=== PATIENT | male | born 1960 | race Caucasian/White ===

== ENCOUNTER → 2016-10-19 | Day surgery (SDC) | payer OTHER ==
[~2016-10-19] MED LIST: AMBIEN10 MG PO; ANEXSIA 7.5/3251 TA1 PO; ASPIRIN81 M1 PO; ASPIRIN81 M2 PO; BYSTOLIC5 MG PO; CYMBALTA PO; DULOXETINE HCL60 MG PO; HYDROCODON-ACE1 EAC1 PO; HYDROCODON-ACE1 EAC5 PO; JANUVIA25 MG PO; LORAZEPAM1 MG PO; METFORMIN HCL500 M1 PO; METOPROLOL SUCC25 MG PO; METOPROLOL-HCTZ1 TA3 PO; METOPROLOL/HCTZ PO; NEURONTIN; NEURONTIN PO; NEURONTIN800 MG PO; PREDNISONE PO
--- NOTE | ~2016-10-19 | OR ---
Unit #: [id number] #: [id number] Patient: LEILANI MCPHERSON III [id number] [address] [place], [place] [address] [id number] O MR#: [id number] NAME: LEILANI MCPHERSON III ROOM: Date of Procedure: 10/19/2016 Admission Date: 10/19/2016 Surgeon: Nathaniel Parmar M.D. : 1960 Attending Physician: Nathaniel Parmar M.D. Primary Care Physician: Saud Vasquez Jr., M.D. SURGERY CENTER OPERATIVE NOTE PROCEDURE PERFORMED Lumbar epidural steroid injection under x-ray guided needle placement with provider administered conscious sedation. PREOPERATIVE DIAGNOSES 1. Acute lumbar radiculitis. 2. Spinal stenosis, lumbosacral spine. 3. Degenerative joint disease, lumbosacral spine. 4. Degenerative disk disease, lumbosacral spine. INDICATIONS FOR PROCEDURE The patient presents today with longstanding history of chronic lumbar radicular pain secondary to his underlying degenerative processes. He is generally fairly well managed medically with ongoing and continuous conservative measures; however, he does occasionally experience exacerbations, which to date have only responded to epidural steroid injections. He is currently experiencing just such an exacerbation and presents today requesting an epidural steroid injection. After discussing risks and benefits of proceeding today with a lumbar approach epidural steroid injection with followup on 01/18/2017, the patient agreed this would be the appropriate course of action. DESCRIPTION OF PROCEDURE He was then taken to the operating room, where he was prepped and draped in a sterile manner. Standard monitors were applied. He was sedated with 2 mg of IV Versed initially and required additional 2 mg of IV Versed throughout the duration of the procedure. Lumbar epidural space accessed at L2-L3 level using loss of resistance technique and x-ray guidance. Needle placement was confirmed with injection of 2 mL of Omnipaque. Approximately 80% of dye flow was in the superior direction. Following successful needle placement confirmation which requires 6 seconds of x-ray time, the patient received an injectate containing 6 mL of normal saline and 80 mg of methylprednisolone. He tolerated this procedure well and was discharged to home with followup instructions, which include return dates as described above. Dictated by... Juan Diego Romeo/wanda TD: 10/20/2016 03:27 Unit #: [id number] #: [id number] Patient: LEILANI MCPHERSON III JOB #: [id number] [facility] OPERATIVE NOTE Page 1 of 1 X Eren Parmar MD PROCEDURE OPERATIVE NOTE
== END | disposition home or self-care (01) ==
LOC: CCSC 10:12
DX: M47.27 Other spondylosis with radiculopathy, lumbosacral region (principal); M51.17 Intervertebral disc disorders with radiculopathy, lumbosacral region; M48.07 Spinal stenosis, lumbosacral region; K21.9 Gastro-esophageal reflux disease without esophagitis
CPT/HCPCS: 82947; J1040; J2250

== ENCOUNTER → 2017-01-04 | Day surgery (SDC) | payer OTHER ==
--- NOTE | ~2017-01-04 | OR ---
Unit #: [id number] #: [id number] Patient: LEILANI MCPHERSON III [id number] [address] [place], [place] [address] [id number] O MR#: [id number] NAME: LEILANI MCPHERSON III ROOM: Date of Procedure: 01/04/2017 Admission Date: 01/04/2017 Surgeon: Nathaniel Parmar M.D. : 1960 Attending Physician: Eren Parmar Primary Care Physician: Saud Vasquez Jr., M.D. SURGERY CENTER OPERATIVE NOTE PROCEDURE PERFORMED Lumbar epidural steroid injection under x-ray guided needle placement with provider administered conscious sedation. PREOPERATIVE DIAGNOSES 1. Acute lumbar radiculitis. 2. Spinal stenosis, lumbosacral spine. 3. Degenerative joint disease, lumbosacral spine. 4. Degenerative disk disease, lumbosacral spine. INDICATIONS FOR PROCEDURE The patient presents today with longstanding history of chronic lumbar radicular pain secondary to his underlying degenerative processes. He is generally fairly well managed medically with ongoing continuous conservative measures; however, he does occasionally experience exacerbations, which to date have only been successfully treated with lumbar epidural steroid injections. His amount of relief is generally 80% for 6 to 8 weeks, although he has had longer periods of success in the past. He is currently experiencing just such an exacerbation, which has been exacerbating over the course of the past 2 weeks and the pain is broken through his usual and ongoing conservative measures to the point that he is negatively impacting his activities of daily living. After discussing risks and benefits of proceeding today with a lumbar epidural steroid injection utilizes dual needle access technique, the patient agreed this would be the appropriate course of action. DESCRIPTION OF PROCEDURE He was then taken to the operating room, where he was prepped and draped in a sterile manner. Standard monitors were applied. He was sedated with 2 mg of IV Versed and lumbar epidural space accessed at the L4-L5 and the L1-L2 levels using loss of resistance technique and x-ray guidance. Needle placement was confirmed at each level with the injection of 2 mL of Omnipaque. At the L4-L5 level, there was good superior and inferior flow of the injected dye and at the L1-L2 level, there was good superior flow. There was excellent intervening connectivity between the 2 flows of dye. Therefore, we felt we were covering the lumbar epidural space adequately. Following successful needle placement confirmation which required an x-ray time of 11 seconds, the patient received an injectate containing 4 mL normal saline, 40 mg of methylprednisolone at each site for a total injectate volume of 8 mL normal saline and 80 mg of methylprednisolone. He tolerated this procedure well. He was discharged home with followup instructions, which include an offer to return to this clinic as early as 03/24/2017 if we could be of further service to him. Unit #: [id number] #: [id number] Patient: LEILANI MCPHERSON III Dictated by... Juan Diego Romeo/wanda TD: 01/05/2017 00:00 JOB #: [id number] [facility]ENTER OPERATIVE NOTE Page 1 of 1 X Eren Parmar MD X PROCEDURE OPERATIVE NOTE
== END | disposition home or self-care (01) ==
LOC: CCSC 09:00
DX: G89.29 Other chronic pain (principal); M51.17 Intervertebral disc disorders with radiculopathy, lumbosacral region; M47.27 Other spondylosis with radiculopathy, lumbosacral region; M48.07 Spinal stenosis, lumbosacral region; K21.9 Gastro-esophageal reflux disease without esophagitis; Z79.82 Long term (current) use of aspirin; Z79.899 Other long term (current) drug therapy; Z90.49 Acquired absence of other specified parts of digestive tract; Z98.890 Other specified postprocedural states; Z88.2 Allergy status to sulfonamides; Z79.84 Long term (current) use of oral hypoglycemic drugs
CPT/HCPCS: 82947; J1040; J2250

== ENCOUNTER → 2017-03-24 | Day surgery (SDC) | payer OTHER ==
--- NOTE | ~2017-03-24 | OR ---
Unit #: [id number] #: [id number] Patient: LEILANI MCPHERSON III [id number] [address] [place], [place] [address] [id number] O MR#: [id number] NAME: LEILANI MCPHERSON III ROOM: Date of Procedure: 03/24/2017 Admission Date: 03/24/2017 Surgeon: Nathaniel Parmar M.D. : 1960 Attending Physician: Nathaniel Parmar M.D. Primary Care Physician: Saud Vasquez Jr., M.D. SURGERY CENTER OPERATIVE NOTE PROCEDURE PERFORMED Lumbar epidural steroid injection under x-ray guided needle placement with provider administered conscious sedation. PREOPERATIVE DIAGNOSES 1. Acute lumbar radiculitis. 2. Spinal stenosis, lumbosacral spine. 3. Degenerative joint disease, lumbosacral spine. 4. Degenerative disk disease, lumbosacral spine. INDICATIONS FOR PROCEDURE The patient presents today with longstanding history of chronic lumbar radicular pain secondary to his underlying degenerative processes. He is generally fairly well managed medically with ongoing continuous medical management and self-directed physical activity. He does occasionally experience exacerbations, which break through his usual ongoing conservative measures and to date have only responded to epidural steroid injections. His usual amount of relief is 60% to 80% for 6 to 8 weeks. He presents today status post lumbar epidural injection approximately 10 to 12 weeks ago. He states he got better relief than in the past for almost 100% relief. This relief lasts approximately 6 to 8 weeks. He now presents with a 2 to 4 week history of crescendo pattern return of his radicular signs, which again have broken through his usual and ongoing conservative measures. It should be noted that he also stated he had new onset of what appeared to be a facet arthralgia pain during the time that he was pain free from her radicular standpoint. It is most probable that this has been in existence prior, but he has just never had the degree of relief from his radicular pain to have noticed it before. After discussing risks and benefits of proceeding today with a lumbar approach epidural steroid injection as well as referral to [facility] for potential radiofrequency ablation, the patient agreed this would be the appropriate course of action. DESCRIPTION OF PROCEDURE He was then taken to the operating room, where he was prepped and draped in a sterile manner. Standard monitors were applied. He was sedated with 2 mg of IV Versed and lumbar epidural space accessed at the L4-L5 and the L2-L3 levels using loss of resistance technique and x-ray guidance. Needle placement was confirmed with injection of 2 mL of Omnipaque at each level. Dye flow was good in the superior and inferior directions at both levels. Following successful needle placement confirmation which required an x-ray time of approximately 18 seconds, the patient received an injectate containing 4 mL normal saline and 40 mg of methylprednisolone at Unit #: [id number] #: [id number] Patient: VIDA III,LEILANI De Dios each level for a total injectate volume today of 8 mL normal saline and 80 mg of methylprednisolone. He tolerated this procedure well. He was discharged home with followup instructions, which include offer to return this clinic as early as 06/02/2017 if we could be of further service to him. Dictated by... Juan Diego Romeo/wanda TD: 03/24/2017 14:00 JOB #: [id number] CC: Saud Vasquez Jr, M.D. SURGERY CENTER OPERATIVE NOTE Page 1 of 1 X Eren Parmar MD X PROCEDURE OPERATIVE NOTE
== END | disposition home or self-care (01) ==
LOC: CCSC 10:15
DX: G89.29 Other chronic pain (principal); M51.17 Intervertebral disc disorders with radiculopathy, lumbosacral region; M47.27 Other spondylosis with radiculopathy, lumbosacral region; M48.07 Spinal stenosis, lumbosacral region; K21.9 Gastro-esophageal reflux disease without esophagitis; Z88.2 Allergy status to sulfonamides; Z79.82 Long term (current) use of aspirin; Z79.899 Other long term (current) drug therapy; Z79.84 Long term (current) use of oral hypoglycemic drugs; Z90.49 Acquired absence of other specified parts of digestive tract
CPT/HCPCS: 82947; J1040; J2250